=== PATIENT | female | born 1955 | race Caucasian/White ===

== ENCOUNTER 2016-11-27 08:35 | Emergency (ER) | payer MEDICAID ==
[~2016-11-27] VITALS: Ht 154.9 cm; Wt 63.5 kg
[2016-11-27 09:10] LABS: BASOPHILS % (AUTO) 0.4 % (0.0-2.0); EOSINOPHILS # (AUTO) 0.2 /CMM (0.0-0.7); EOSINOPHILS % (AUTO) 1.5 % (0.0-6.0); HEMATOCRIT 42 % (33-45); HEMOGLOBIN 13.9 g/dL (11.5-14.8); LYMPHOCYTES # (AUTO) 3.4 /CMM (0.8-4.8); LYMPHOCYTES % (AUTO) 33.3 % (20.0-44.0); MEAN CORPUSCULAR HEMOGLOBIN 29 PG (26.0-33.0); MEAN CORPUSCULAR HGB CONC 33 g/dl (31.0-36.0); MEAN CORPUSCULAR VOLUME 87 fL (82-100); MONOCYTES # (AUTO) 0.6 /CMM (0.1-1.30); MONOCYTES % (AUTO) 6.3 % (2.0-12.0); NEUTROPHILS # (AUTO) 5.9 /CMM (1.8-8.9); NEUTROPHILS % (AUTO) 58.5 % (43.0-81.0); PLATELET COUNT (AUTO) 309 /CMM (150-450); RDW COEFFICIENT OF VARIATION 13.6 (11.5-15.0); RED BLOOD CELL COUNT(AUTO) 4.79 MIL/uL (4.0-5.2); WHITE BLOOD COUNT (AUTO) 10.1 K/uL (4.3-11.0)
[2016-11-27 09:29] LABS: PROTHROMBIN TIME 10.7 SECS (9.5-12.7)
[2016-11-27 09:32] LABS: CALCIUM, SERUM 9.4 mg/dL (8.5-10.1); CARBON DIOXIDE 26 mmol/L (21-32); CHLORIDE 103 mmol/L (98-107); CREATININE 0.7 mg/dL (0.6-1.3); GFR 85 mL/min (>60); GLUCOSE 227 mg/dL (74-106); POTASSIUM 4.3 mmol/L (3.5-5.1); SODIUM SERUM 140 mmol/L (136-145); UREA NITROGEN, BLOOD 18 mg/dL (7-18)
[2016-11-27 09:37] LABS: ALANINE AMINOTRANSFERASE 37 U/L (12-78); ALKALINE PHOSPHATASE 37 U/L (46-116); ASPARTATE AMINOTRANSFERASE 17 U/L (15-37); BILIRUBIN,DIRECT 0.1 mg/dL (0.0-0.2); BILIRUBIN,TOTAL 0.6 mg/dL (0.2-1.0); TOTAL PROTEIN, SERUM 7.9 g/dL (6.4-8.2)
[2016-11-27 09:39] LABS: TROPONIN I < 0.017 ng/mL (0.00-0.056)
--- NOTE | 2016-11-27 10:29 | NUR ---
ACI WITH NO RX/ COPIES OF HEAD CT/ LABS PROVIDED TO BOTH PT/FAMILY MEMBERS. VERBALIZED UNDERSTANDING. REPORTS SHE IS FEELING BETTER. PT LEFT DEM IN STABLE CONDITION STRONG STEADY GAIT.
[2016-11-27 10:35] VITALS: BP 108/76
== END 2016-11-27 10:36 | disposition home or self-care (01) ==
LOC: ER 08:37
DX: R55 Syncope and collapse (principal); S00.03XA Contusion of scalp, initial encounter; I10 Essential (primary) hypertension; E11.9 Type 2 diabetes mellitus without complications; Z90.49 Acquired absence of other specified parts of digestive tract; Z90.89 Acquired absence of other organs; W18.30XA Fall on same level, unspecified, initial encounter; Y93.89 Activity, other specified; Y92.89 Other specified places as the place of occurrence of the external cause; Y99.8 Other external cause status
CPT/HCPCS: 36415; 70450; 80048; 80076; 84484; 85025; 85730; 93005; 99285; A4606; Z7610; A6402

== ENCOUNTER 2018-12-03 08:28 | Emergency (ER) | payer OTHER ==
[~2018-12-03] VITALS: Ht 154.9 cm; Wt 63.5 kg
--- NOTE | 2018-12-03 08:37 | NUR ---
PT BIB DAUGHTER C/O DIZZINESS, HIGH BLOOD PRESSURE X 1 HOUR, PT IS AAOX4, NOT IN RESPIRATORY DISTRESS, V/S STABLE, HOOKED TO MONITOR, KEPT RESTED AND COMFORTABLE.
--- NOTE | 2018-12-03 08:46 | NUR ---
DR. KOCH AT BEDSIDE FOR EVAL.
--- NOTE | 2018-12-03 09:07 | NUR ---
ER PHLEB AT BEDSIDE FOR BLOOD DRAW.
[2018-12-03 09:20] LABS: BASOPHILS % (AUTO) 0.4 % (0.0-2.0); EOSINOPHILS % (AUTO) 1.3 % (0.0-6.0); HEMATOCRIT 44 % (33-45); HEMOGLOBIN 14.4 g/dL (11.5-14.8); LYMPHOCYTES % (AUTO) 26.1 % (20.0-44.0); MEAN CORPUSCULAR HGB CONC 33 g/dl (31.0-36.0); MEAN CORPUSCULAR VOLUME 90 fL (82-100); MONOCYTES # (AUTO) 0.5 /CMM (0.1-1.30); MONOCYTES % (AUTO) 6.4 % (2.0-12.0); NEUTROPHILS # (AUTO) 5.2 /CMM (1.8-8.9); NEUTROPHILS % (AUTO) 65.8 % (43.0-81.0); PLATELET COUNT (AUTO) 247 /CMM (150-450); WHITE BLOOD COUNT (AUTO) 7.8 K/uL (4.3-11.0)
[2018-12-03 09:24] LABS: POTASSIUM 4.2 mmol/L (3.5-5.1)
[2018-12-03 09:26] LABS: CALCIUM, SERUM 9.5 mg/dL (8.5-10.1); CARBON DIOXIDE 28 mmol/L (21-32); CHLORIDE 102 mmol/L (98-107); CREATININE 0.5 mg/dL (0.6-1.3); GLUCOSE 273 mg/dL (74-106); SODIUM SERUM 139 mmol/L (136-145); UREA NITROGEN, BLOOD 14 mg/dL (7-18)
--- NOTE | 2018-12-03 10:03 | NUR ---
IV removed. Catheter intact and site benign. Pressure and 4x4 applied to site. No bleeding noted. Patient discharged to home in stable condition. Written and verbal after care instructions given. Patient verbalizes understanding of instruction.
[2018-12-03 10:04] VITALS: BP 141/79
== END 2018-12-03 10:08 | disposition home or self-care (01) ==
LOC: ER 08:28
DX: R00.2 Palpitations (principal); I10 Essential (primary) hypertension; E11.9 Type 2 diabetes mellitus without complications; Z90.49 Acquired absence of other specified parts of digestive tract; Z90.89 Acquired absence of other organs
CPT/HCPCS: 36415; 71045-TC; 80048-TC; 84484-TC; 85025-TC

== ENCOUNTER 2021-09-28 11:43 | Inpatient (IN) | payer MEDICARE, MEDICAID ==
[~2021-09-28] VITALS: Ht 157.5 cm; Wt 59.9 kg
--- NOTE | 2021-09-28 11:46 | NUR ---
[id number] HOME, BACK OF HEAD LACERATION S/P SYNCOPE WALKING TO KITCHEN AT HOME. PATIENT IS A&OX4. BREATHING IS REGULAR AND UNLABORED. WARM BLANKET PROVIDED. AWAITING MD FOLEY.
--- NOTE | 2021-09-28 11:52 | NUR ---
COVID TEST COLLECTED AND SENT
--- NOTE | 2021-09-28 11:52 | NUR ---
IV ESTABLIHSED L HAND 20G
--- NOTE | 2021-09-28 11:54 | NUR ---
LAB AT BEDSIDE
--- NOTE | 2021-09-28 12:36 | NUR ---
X RAY AT BEDSIDE
--- NOTE | 2021-09-28 12:36 | NUR ---
PT UNABLE TO PROVIDE URINE AT THIS TIME.
[2021-09-28 12:37] LABS: CALCIUM, SERUM 10.2 mg/dL (8.5-10.1); CARBON DIOXIDE 28 mmol/L (21-32); CHLORIDE 101 mmol/L (98-107); CREATININE 0.6 mg/dL (0.6-1.3); GLUCOSE 348 mg/dL (74-106); POTASSIUM 3.3 mmol/L (3.5-5.1); SODIUM SERUM 141 mmol/L (136-145); UREA NITROGEN, BLOOD 13 mg/dL (7-18)
[2021-09-28 12:45] LABS: ALANINE AMINOTRANSFERASE 34 U/L (12-78); ALBUMIN 4.3 g/dL (3.4-5.0); ALKALINE PHOSPHATASE 54 U/L (46-116); ASPARTATE AMINOTRANSFERASE 22 U/L (15-37); BILIRUBIN,DIRECT 0.2 mg/dL (0.0-0.2); BILIRUBIN,TOTAL 0.7 mg/dL (0.2-1.0); TOTAL PROTEIN, SERUM 8.5 g/dL (6.4-8.2)
[2021-09-28] MEDS ORDERED: BENA40TA8 PO (12:56)
[2021-09-28] MEDS ORDERED: CANA300T PO (12:56)
[2021-09-28] MEDS ORDERED: INSU100V SQ (12:56)
[2021-09-28] MEDS ORDERED: ICOS1CAP PO (12:56)
[2021-09-28] MEDS ORDERED: FURO40TA5 PO (12:56)
[2021-09-28] MEDS ORDERED: INSU100V7 SQ (12:56)
[2021-09-28] MEDS ORDERED: POTA8TAB3 PO (12:56)
[2021-09-28] MEDS ORDERED: OMEP1PAC7 PO (12:56)
[2021-09-28] MEDS ORDERED: LEVO25TA76 PO (12:56)
[2021-09-28] MEDS ORDERED: HYDR-4077 PO (12:56)
[2021-09-28] MEDS ORDERED: LIPA1CAP15 PO (12:56)
[2021-09-28] MEDS ORDERED: METO-358 PO (12:56)
[2021-09-28] MEDS ORDERED: GABA-532 PO (12:56)
[2021-09-28] MEDS ORDERED: HYDR12.55 PO (12:56)
[2021-09-28] MEDS ORDERED: DOXA4TAB19 PO (12:56)
[2021-09-28] MEDS ORDERED: ROSU20TA32 PO (12:56)
[2021-09-28] MEDS ORDERED: METF-867 PO (12:56)
[2021-09-28] MEDS ORDERED: POTASSIUM CHLORIDE 20 MEQ TAB.PRT.SR PO ONE ×2 (13:00→13:26)
[2021-09-28] MEDS ORDERED: IV NS 0.9% 500 ML BAG IV ONE (13:30)
[2021-09-28 13:38] LABS: BASOPHILS % (AUTO) 0.3 % (0.0-2.0); EOSINOPHILS % (AUTO) 1.2 % (0.0-6.0); HEMATOCRIT 41 % (33-45); HEMOGLOBIN 13.7 g/dL (11.5-14.8); LYMPHOCYTES # (AUTO) 1.1 K/uL (0.8-4.8); LYMPHOCYTES % (AUTO) 7.2 % (20.0-44.0); MEAN CORPUSCULAR HGB CONC 33 g/dl (31.0-36.0); MEAN CORPUSCULAR VOLUME 86 fL (82-100); MONOCYTES % (AUTO) 6.8 % (2.0-12.0); NEUTROPHILS # (AUTO) 12.6 K/uL (1.8-8.9); NEUTROPHILS % (AUTO) 84.5 % (43.0-81.0); PLATELET COUNT (AUTO) 252 K/uL (150-450); RED BLOOD CELL COUNT(AUTO) 4.75 MIL/uL (4.0-5.2); WHITE BLOOD COUNT (AUTO) 14.9 K/uL (4.3-11.0)
--- NOTE | 2021-09-28 15:27 | NUR ---
ROSMERY .. SISTER OF PATIENT
--- NOTE | 2021-09-28 15:33 | NUR ---
MOVE SHEET SUBMITTED AND CALLED FOR TELE BED.
--- NOTE | 2021-09-28 15:54 | NUR ---
[facility] CALLED SOFTWARE SECURITY CONSULTANT PAGED.
--- NOTE | 2021-09-28 16:00 | NUR ---
URINE SPECIMEN SENT TO LAB
--- NOTE | 2021-09-28 16:10 | NUR ---
HULLER OPERATOR CAME TO DRAW BLOODS FOR TROPONIN
[2021-09-28] MEDS ORDERED: ONDANSETRON HCL/PF 4 MG/2 ML VIAL ONE (16:20)
--- NOTE | 2021-09-28 16:20 | NUR ---
Sandra gordilloelen in [facility] - 09/28/21 at 1754 by CORDELIA PATIENT WAS WHEELED TO CT SCAN DEPARTMENT VIA STRETCHER FOR REPEAT CT SCAN OF THE HEAD
--- NOTE | 2021-09-28 16:28 | NUR ---
1615- IVF 1L BOLUS STARTED. PATIENT HAS EPISODE OF VOMITING. Sammy ALANIS MADE AWARE
--- NOTE | 2021-09-28 16:35 | NUR ---
PATIENT WAS WHEELED TO CT SCAN DEPT VIA STRETCHER FOR REPEAT CT OF BRAIN
[2021-09-28 16:42] LABS: BILIRUBIN,URINE NEGATIVE (NEGATIVE); COLOR,URINE YELLOW (YELLOW); LEUKOCYTE ESTERASE ,URINE NEGATIVE (NEGATIVE); NITRITE, URINE NEGATIVE (NEGATIVE); PH,URINE 5.5 (5.0-8.0); PROTEIN,URINE 100 mg/dl (NEGATIVE); UGLUCOSE >=1000 mg/dL (NEGATIVE); UROBILINOGEN,URINE 0.2 EU/dL (0.2)
[2021-09-28 16:55] LABS: BACTERIA,URINE 1+ /HPF (None Seen); RBC,URINE 0-2 /HPF (0-2); SQUAMOUS EPITHELIAL CELL,UR 0-2 /HPF (None Seen); URINE AMORPHOUS URATE Few /HPF (None Seen); WBC,URINE 0-2 /HPF (0-3)
[2021-09-28] MEDS ORDERED: MAG HYDROX/AL HYDROX/SIMETH 30 ML UDC PO PRN (17:00)
[2021-09-28] MEDS ORDERED: ONDANSETRON HCL/PF 4 MG/2 ML VIAL IVP PRN (17:00)
[2021-09-28] MEDS ORDERED: DEXTROSE 50%-WATER 50 ML DISP.SYRIN IV PRN (17:00)
[2021-09-28] MEDS ORDERED: Z GUARD REMEDY 4 OZ OINT TP PRN (17:00)
[2021-09-28] MEDS ORDERED: ACETAMINOPHEN 325 MG TABLET PO PRN (17:00)
[2021-09-28] MEDS ORDERED: MORPHINE SULFATE INJ 2 MG/ML DISP.SYRIN IV PRN (17:00)
[2021-09-28] MEDS ORDERED: MAGNESIUM HYDROXIDE 30 ML UDC PO PRN (17:00)
--- NOTE | 2021-09-28 17:17 | NUR ---
GOING TO 327.2
--- NOTE | 2021-09-28 17:20 | NUR ---
SUDEEP APPLIED TO LACERATED WOUND AT RIGHT OCCIPITAL AREA. PATIENT TOLERATING THE PROCEDURE
[2021-09-28] MEDS: BLOOD SUGAR DIAGNOSTIC 1 EACH STRIP IN SCH ×2 (17:30→21:55)
--- NOTE | 2021-09-28 17:45 | NUR ---
PATIENT IS ADMITTED TO ROOM 326 2, REPORT GIVEN TO NURSE GORAN
--- NOTE | 2021-09-28 17:58 | NUR ---
DAUGHTER AT BEDSIDE
[2021-09-28] MEDS: GABAPENTIN 100 MG CAPSULE PO SCH (18:00)
[2021-09-28] MEDS ORDERED: GABAPENTIN 100 MG CAPSULE ONE (18:18)
--- NOTE | 2021-09-28 18:23 | NUR ---
BEDSIDE 2DECHO DONE.
[2021-09-28] MEDS ORDERED: INSULIN REGULAR, HUMAN 100 UNIT/ML 10 ML VIAL ONE (18:46)
[2021-09-28] MEDS: INSULIN REGULAR, HUMAN 100 UNIT/ML 3 ML VIAL SQ PRN ×2 (18:47→22:10)
--- NOTE | 2021-09-28 19:58 | NUR ---
icu 259
--- NOTE | 2021-09-28 20:18 | NUR ---
PT CAN BE ADMITTED TO ICU RM 259. REPORTS GIVEN TO LOULOU.
--- NOTE | 2021-09-28 20:30 | NUR ---
TRANSFER PATIENT TO ICU VIA STRETCHER WITH GREENHOUSE WORKER ATTACHED. 2ND IV LINE INSERTED ON LFA USING G20 NEEDLE.
--- NOTE | 2021-09-28 20:41 | NUR ---
PATIENT TRANSFERRED UNDER ACLS.
[2021-09-28 21:00] VITALS: BP 114/83
[2021-09-28] MEDS: ATORVASTATIN 40 MG TABLET PO SCH (21:55)
[2021-09-28] MEDS: INSULIN GLARGINE, 100 UNIT/ML CARTRIDGE SQ SCH (21:59)
[2021-09-28 22:00] VITALS: BP 128/58
--- NOTE | 2021-09-28 22:00 | NUR ---
RN NOTE RECEIVED PATIENT FROM ER VIA [employer]v. PATIENT IS ALERT AND ORIENTED X4. ABLE TO MAKE NEEDS KNOWN. NO SLURRED SPEECH. BREATHING EVEN AND UNLABORED. DENIES FEELING SHORTNESS OF BREATH. TOLERATING ROOM AIR AT 94 PERCENT. HOB ELEVATED 35 DEGREES. ON TELE MONITORING, SINUS TACHYCARDIA AT 112 BPM. DENIES CHEST PAIN. STATES SHE FEELS DIZZY WHEN TURNING AND REPOSITIONING. SKIN WARM AND DRY. NOTED WITH LEFT AC 20G, AND LEFT FOREARM 20G, NO INFILTRATION. NIHSS SCALE PERFORMED. NO ABNORMALITIES AT THIS TIME. SWALLOW EVAL PERFORMED AT BEDSIDE. TOLERATED 60 CC FLUIDS. NO SYMPTOMS OF HYPO/HYPERGLYCEMIA. OFFERED SNACKS. FLOOR ORDERS NOTED AND CARRIED OUT. DENIES CONSTIPATION/BLADDER PAIN. WILL CONTINUE TO MONITOR FOR NEUROLOGICAL CHANGES. BED LOW, IN LOCKED POSITION, CALL LIGHT WITHIN REACH.
[2021-09-28 23:00] VITALS: BP 121/70
[2021-09-29] VITALS (24 sets, daily range): BP systolic 105–135; BP diastolic 52–83
[2021-09-29 04:26] LABS: BASOPHILS % (AUTO) 0.1 % (0.0-2.0); HEMATOCRIT 38 % (33-45); HEMOGLOBIN 12.9 g/dL (11.5-14.8); LYMPHOCYTES # (AUTO) 1.5 K/uL (0.8-4.8); LYMPHOCYTES % (AUTO) 14.3 % (20.0-44.0); MEAN CORPUSCULAR HGB CONC 34 g/dl (31.0-36.0); MEAN CORPUSCULAR VOLUME 86 fL (82-100); MONOCYTES # (AUTO) 1.1 K/uL (0.1-1.30); MONOCYTES % (AUTO) 10.6 % (2.0-12.0); PLATELET COUNT (AUTO) 285 K/uL (150-450); RED BLOOD CELL COUNT(AUTO) 4.45 MIL/uL (4.0-5.2); WHITE BLOOD COUNT (AUTO) 10.7 K/uL (4.3-11.0)
[2021-09-29 04:49] LABS: CALCIUM, SERUM 9.1 mg/dL (8.5-10.1); CREATININE 0.5 mg/dL (0.6-1.3); MAGNESIUM 1.8 mg/dL (1.8-2.4); PHOSPHORUS 3.2 mg/dL (2.5-4.9); POTASSIUM 3.9 mmol/L (3.5-5.1)
--- NOTE | 2021-09-29 07:30 | NUR ---
CIRCULATING PROCESS INSPECTOR OPENING NOTES Patient is alert and oriented x 4. Breathing even and unlabored. On room air with 02 sat of 96%. No c/o pain or discomfort. Patient teaching done regarding use of call light and safety precautions. Neuro checks done and WNL. Will continue to monitor. Call light with in reach.
[2021-09-29] MEDS: LEVOTHYROXINE SODIUM 25 MCG TABLET PO SCH (08:15)
[2021-09-29] MEDS: GABAPENTIN 100 MG CAPSULE PO SCH ×3 (08:15→16:35)
[2021-09-29] MEDS: BLOOD SUGAR DIAGNOSTIC 1 EACH STRIP IN SCH ×4 (08:15→21:00)
[2021-09-29] MEDS: INSULIN REGULAR, HUMAN 100 UNIT/ML 3 ML VIAL SQ PRN ×4 (08:16→21:06)
[2021-09-29] MEDS ORDERED: PANTOPRAZOLE 40 MG VIAL IV SCH (09:00)
--- NOTE | 2021-09-29 09:00 | NUR ---
Patient noted with dislodged iv site both and new iv line started to right hand 22 GAUGE.
[2021-09-29] MEDS: METOPROLOL TARTRATE 50 MG TABLET PO SCH ×3 (11:56→23:26)
[2021-09-29 12:39] LABS: THYROID STIMULATING HORMONE 0.888 uIU/mL (0.358-3.74)
--- NOTE | 2021-09-29 14:00 | NUR ---
Patient neuro vitals WNL. C/O headache. Dr Santiago aware in assessed in person with no new orders.
--- NOTE | 2021-09-29 17:39 | NUR ---
Patient seen by Dr Wolf and per to continue monitoring the patient in ICU and recheck CT of the brain in am. Orders noted. Patient aware. Addendum: 09/29/21 at 1743 by MARÍA PATEL RN MD Wolf made aware that patient c.o dizziness during the shift no c/o headache or blurred visioN.
--- NOTE | 2021-09-29 18:55 | NUR ---
SNACK FOODS MIXER OPERATOR CLOSING NOTES Patient is alert and oriented x 4. Breathing even and unlabored. On room air with 02 sat of 99%. No c/o pain or discomfort. Patient teaching done regarding use of call light and safety precautions. Patient monitored during shift for neuro checks and noted with WNL. Patient used bedpan x2, HOB kept elevated. Patient resting comfortably in bed. Will endorse to nextg shift. Call light with in reach.
--- NOTE | 2021-09-29 19:38 | NUR ---
RN NOTE RECEIVED PATIENT IN BED, SLEEPING, AROUSABLE TO NAME AND TOUCH. AOX4. BREATHING EVEN AND UNLABORED. TOLERATING ROOM AIR, LAYING SUPINE. OXYGEN SATURATION OF 92 PERCENT. DENIES FEELING SOB. ON TELE MONITORING, SINUS RHYTHM AT 90 BPM. DENIES CHEST PAIN. SKIN WARM AND DRY. NOTED WITH RIGHT HAND 22G, PATENT, NO INFILTRATION. NO IVF. NOTED WITH OCCIPITAL LACERATION WITH SUDEEP. NO BLEEDING/DRAINAGE. NO S/S OF HYPO/HYPERGLYCEMIA AT THIS TIME. OFFERED FLUIDS FOR ADEQUATE HYDRATION. WHEN ASKED FOR PAIN, PATIENT STATES OF PAIN IN BACK OF HER HEAD WHERE SUDEEP ARE LOCATED. RATES PAIN 7/10. DENIES NAUSEA/VOMITING, AND DIZZINESS. BED LOW, IN LOCKED POSITION. CALL LIGHT WITHIN REACH.
[2021-09-29] MEDS: HYDROCODONE/APAP 5/325MG TABLET PO PRN (19:47)
--- NOTE | 2021-09-29 19:47 | NUR ---
RN NOTE PATIENT STATES OF PAIN IN BACK OF HER HEAD WHERE SUDEEP ARE LOCATED. RATES PAIN 7/10. DENIES NAUSEA/VOMITING, AND DIZZINESS. ADMINISTERED NORCO 5MG/325MG PER MD ORDER. VITAL SIGNS WITHIN NORMAL LIMIT. WILL CONTINUE TO MONITOR CALL LIGHT WITHIN REACH.
[2021-09-29] MEDS: INSULIN GLARGINE, 100 UNIT/ML CARTRIDGE SQ SCH (21:07)
[2021-09-29] MEDS: ATORVASTATIN 40 MG TABLET PO SCH (21:07)
[2021-09-29] MEDS ORDERED: MECLIZINE HCL 12.5 MG TABLET PO ONE (22:30)
--- NOTE | 2021-09-29 22:37 | NUR ---
RN NOTE PATIENT COMPLAINING OF MILD DIZZINESS WHEN TURNING AND REPOSITIONING AND REQUESTED FOR MEDICATION FOR DIZZINESS. DENIES FEELING NAUSEA/VOMITING. HEADACHE RESOLVED AT THIS TIME. NO CHANGES IN LEVEL OF CONSCIOUSNESS. VITAL SIGNS WNL. PAGED ERUM MCKEON. PER ALIYA MCKEON FOR MECLIZINE 25 MG PO ONE TIME. NEW ORDER NOTED AND CARRIED OUT. MEDICATION NOT AVAILABLE IN [facility]. FAXED ORDER TO NURSING LABOR LAW PROFESSOR.
[2021-09-29] MEDS ORDERED: MECLIZINE HCL 25 MG TABLET ONE (23:55)
[2021-09-30] VITALS (17 sets, daily range): BP systolic 114–149; BP diastolic 48–86
[2021-09-30 04:23] LABS: BASOPHILS % (AUTO) 0.4 % (0.0-2.0); EOSINOPHILS % (AUTO) 0.4 % (0.0-6.0); HEMATOCRIT 38 % (33-45); HEMOGLOBIN 12.8 g/dL (11.5-14.8); LYMPHOCYTES # (AUTO) 3.4 K/uL (0.8-4.8); LYMPHOCYTES % (AUTO) 33.7 % (20.0-44.0); MEAN CORPUSCULAR HGB CONC 34 g/dl (31.0-36.0); MEAN CORPUSCULAR VOLUME 86 fL (82-100); MONOCYTES # (AUTO) 0.9 K/uL (0.1-1.30); MONOCYTES % (AUTO) 9.2 % (2.0-12.0); NEUTROPHILS # (AUTO) 5.7 K/uL (1.8-8.9); NEUTROPHILS % (AUTO) 56.3 % (43.0-81.0); PLATELET COUNT (AUTO) 238 K/uL (150-450); WHITE BLOOD COUNT (AUTO) 10.1 K/uL (4.3-11.0)
[2021-09-30 04:51] LABS: ALBUMIN 3.2 g/dL (3.4-5.0); BILIRUBIN,TOTAL 0.7 mg/dL (0.2-1.0); CREATININE 0.5 mg/dL (0.6-1.3); MAGNESIUM 1.9 mg/dL (1.8-2.4); PHOSPHORUS 2.6 mg/dL (2.5-4.9); POTASSIUM 3.8 mmol/L (3.5-5.1); TOTAL PROTEIN, SERUM 7.1 g/dL (6.4-8.2)
[2021-09-30] MEDS: METOPROLOL TARTRATE 50 MG TABLET PO SCH ×4 (05:32→23:24)
--- NOTE | 2021-09-30 07:30 | NUR ---
RN MORNING NOTE PT OBSERVED SLEEPING IN BED WITH HOB AT 30 DEGREES. PT IS ON RA SAT 95% TOLERATING WELL AT THIS TIME WITH NO SIGNS OF LABORED BREATHING OR DISTRESS. PT IS A/OX4. PT IS TELE MONITOR SR @90BPM. IV ACCESS R QUEZ[place] 22G. BED IS LOCKED IN LOWEST POSITION X2 GUARD RAILS UP, CALL BONE IS WITHIN REACH AND ALL HOSPITAL SAFETY PRECAUTIONS ARE IN PLACE. WILL CONTINUE TO MONITOR THIS SHIFT.
[2021-09-30] MEDS: LEVOTHYROXINE SODIUM 25 MCG TABLET PO SCH (07:46)
[2021-09-30] MEDS: BLOOD SUGAR DIAGNOSTIC 1 EACH STRIP IN SCH ×4 (07:51→21:45)
[2021-09-30] MEDS: GABAPENTIN 100 MG CAPSULE PO SCH ×3 (08:05→17:04)
[2021-09-30] MEDS: PANTOPRAZOLE 40 MG TABLET.DR PO SCH (08:05)
[2021-09-30] MEDS: INSULIN REGULAR, HUMAN 100 UNIT/ML 3 ML VIAL SQ PRN ×4 (09:22→21:51)
--- NOTE | 2021-09-30 14:00 | NUR ---
RN NOTES RECEIVED PATIENT FROM ICU, TRANSPORTED VIA BED, ACCOMPANIED BY EMPERATRIZ LEACH. PATIENT ALERT , A/O X4, VERBALLY RESPONSIVE, NO SIGNS OF ACUTE DISTRESS NOTED. ON ROOM AIR TOLERATING WELL, SATURATION @97 %. NO SOB NOTED, BREATHING EVEN AND UNLABORED. ACCOUNTING DIRECTOR APPLIED, WITH READING SHOWING SR @82. NOT IN CARDIAC DISTRESS. SKIN GENERALLY INTACT. WITH IV ACCESS ON RIGHT HAND #22G, INTACT AND PATENT, SALINE LOCKED. PATIENT ORIENTED TO ROOM AND ROOM MATE. SAFETY MEASURES IN PLACE. BED IN LOWEST LOCKED POSITION, SR UP X 2, CALL LIGHT PLACED WITHIN EASY REACH. WILL CONTINUE TO MONITOR. VITAL SIGNS FOLLOWS: 133/73, 82, 98.2, 19, SPO2 97%, PS 0/10.
--- NOTE | 2021-09-30 15:40 | NUR ---
RN NOTE PT COMPLETED CT OF HEAD WO CONTRAST. PT ALSO TRANSFERRED TO ROOM 327/1. REPORT GIVEN TO EMPERATRIZ VELÁZQUEZ. PT STABLE AT THIS TIME AND PT TRANSFERRED WITH ALL MEDICATIONS AND ALL BELONGINGS: CELL PHONE AND WALL BEARING RING ASSEMBLER.
--- NOTE | 2021-09-30 16:05 | NUR ---
RN NOTES RECEIVED PATIENT FROM ICU, TRANSPORTED VIA BED, ACCOMPANIED BY EMPERATRIZ LEACH. PATIENT IS A/O X4, NO SIGNS OF ACUTE DISTRESS NOTED. ON ROOM AIR TOLERATING WELL, NO SOB NOTED, BREATHING EVEN AND UNLABORED, SPO2 @ 97%. TOOL GRINDER OPERATOR SURFACE PLACED, SHOWING SR @ 82. ORIENTED PATIENT TO ROOM. SAFETY MEASURES PROVIDED. BED LOCKED AND IN LOWEST POSITION, SR UP X2, CALL LIGHT PLACED WITHIN EASY REACH. KEPT COMFORTABLE. WILL CONTINUE TO MONITOR. VITAL SIGNS FOLLOWS: 133/73, 82, 98.2, 19. WILL CONTINUE TO MONITOR.
--- NOTE | 2021-09-30 19:00 | NUR ---
DIETARY SERVICES MANAGER NOTES PATIENT IN BED AWAKE, A/O X4. REMAINS ON ROOM AIR, TOLERATED WELL. NO SOB NOTED, BREATHING EVEN AND UNLABORED. ON TELE MONITOR SHOWING SR @ 90. IV ACCESS ON RIGHT HAND INTACT AND PATENT SALINE LOCKED. NO C/O PAIN AT THIS TIME. SAFETY MEASURE IN PLACE. BED IN LOWEST LOCKED POSITION, SR UP X2, CALL LIGHT PLACED WITHIN EASY REACH. WILL ENDORSE TO NEXT SHIFT.
--- NOTE | 2021-09-30 19:30 | NUR ---
VOICE SYSTEMS ENGINEER OPENING NOTE RECEIVED PATIENT IN BED. 2 FAMILY MEMBERS ON BEDSIDE WITH PATIENT. A/OX4. NO S/S OF APPARENT DISTRESS ON RROM AIR. SENIES ANY PAIN. TELE MONITOR READING SR 83. PATIENT NOTED TO HAVE SUDEEP ON BACK OF THE HEAD-- INTACT AND PATENT. NO DRY BLOOD OR ANY ACTIVE BLEEDING NOTED. SAFETY IN PLACE. NO FLUIDS RUNNING AT THIS TIME. WILL CONTINUE WITH PATIENT PLAN OF CARE.
[2021-09-30] MEDS: ATORVASTATIN 40 MG TABLET PO SCH (21:16)
[2021-09-30] MEDS: INSULIN GLARGINE, 100 UNIT/ML CARTRIDGE SQ SCH (21:47)
[2021-10-01] VITALS: BP 132/63
[2021-10-01 04:00] VITALS: BP 142/67
[2021-10-01] MEDS: METOPROLOL TARTRATE 50 MG TABLET PO SCH ×3 (06:27→17:17)
[2021-10-01] MEDS: BLOOD SUGAR DIAGNOSTIC 1 EACH STRIP IN SCH ×4 (06:31→21:56)
[2021-10-01] MEDS: INSULIN REGULAR, HUMAN 100 UNIT/ML 3 ML VIAL SQ PRN ×4 (06:33→22:02)
[2021-10-01] MEDS: HYDROCODONE/APAP 5/325MG TABLET PO PRN (06:39)
--- NOTE | 2021-10-01 07:04 | NUR ---
STITCH BURNISHER CLOSING NOTE PATIENT IN BED, A/OX4. NO S/S OF APPARENT DISTRESS. PAIN MANAGED WITH MEDICATION. TELE MONITOR READING SR 80 THIS AM. NO FLUIDS RUNNING AT THIS TIME. SEIZURE PRECAUTION IN PLACE-- PADDED RAILINGS. NEURO CHECKS HAS BEEN NORMAL. NIHSS = 0. ALL NEEDS ATTENDED. ALL SCHEDULED MEDICATIONS ADMINISTERED. SAFETY IN PLACE. WILL ENDORSE TO MORNING SHIFT RN FOR CONTINUITY OF CARE.
[2021-10-01] MEDS: LEVOTHYROXINE SODIUM 25 MCG TABLET PO SCH (07:30)
[2021-10-01 07:32] LABS: BASOPHILS % (AUTO) 0.4 % (0.0-2.0); EOSINOPHILS % (AUTO) 1.3 % (0.0-6.0); HEMATOCRIT 40 % (33-45); HEMOGLOBIN 13.3 g/dL (11.5-14.8); LYMPHOCYTES # (AUTO) 2.9 K/uL (0.8-4.8); LYMPHOCYTES % (AUTO) 34.1 % (20.0-44.0); MEAN CORPUSCULAR HGB CONC 33 g/dl (31.0-36.0); MEAN CORPUSCULAR VOLUME 86 fL (82-100); MONOCYTES # (AUTO) 0.8 K/uL (0.1-1.30); MONOCYTES % (AUTO) 9.3 % (2.0-12.0); NEUTROPHILS # (AUTO) 4.7 K/uL (1.8-8.9); NEUTROPHILS % (AUTO) 54.9 % (43.0-81.0); PLATELET COUNT (AUTO) 238 K/uL (150-450); RED BLOOD CELL COUNT(AUTO) 4.63 MIL/uL (4.0-5.2); WHITE BLOOD COUNT (AUTO) 8.6 K/uL (4.3-11.0)
--- NOTE | 2021-10-01 07:44 | NUR ---
CARDIOLOGY CLINICAL CONSULTANT OPENING NOTES RECEIVED PATIENT IN BED, AWAKE, A/O X4. PATIENT ON ROOM AIR; BREATHING EVEN AND UNLABORED; NO SOB NOTED. NO COMPLAINS OF PAIN BUT COMPLAINING OF DIZZINESS. TELE MONITOR WITH A CURRENT READING OF SR 76 BPM. R HAND IV ACCESS G #22 PRESENT AND INTACT. SAFETY PRECAUTIONS IN PLACE; BED IN LOW POSITION AND LOCKED, RAILS UP X2, CALL LIGHT WITHIN REACH, SEIZURE PRECAUTIONS IN PLACE. WILL CONTINUE TO MONITOR PATIENT.
[2021-10-01 08:00] VITALS: BP 128/64
[2021-10-01] MEDS ORDERED: PANTOPRAZOLE 40 MG TABLET.DR PO SCH (08:00)
[2021-10-01] MEDS: GABAPENTIN 100 MG CAPSULE PO SCH ×3 (08:07→17:17)
[2021-10-01] MEDS: PANTOPRAZOLE 40 MG TABLET.DR PO SCH (08:07)
[2021-10-01 12:00] VITALS: BP 127/61
[2021-10-01 12:34] LABS: ALBUMIN 3.4 g/dL (3.4-5.0); BILIRUBIN,TOTAL 0.8 mg/dL (0.2-1.0); CALCIUM, SERUM 9.3 mg/dL (8.5-10.1); CREATININE 0.5 mg/dL (0.6-1.3); PHOSPHORUS 3.4 mg/dL (2.5-4.9); POTASSIUM 3.6 mmol/L (3.5-5.1); TOTAL PROTEIN, SERUM 7.5 g/dL (6.4-8.2)
[2021-10-01 16:00] VITALS: BP 123/70
--- NOTE | 2021-10-01 18:42 | NUR ---
SILVERLIGHT DEVELOPER CLOSING NOTES PATIENT REMAINS IN BED, AWAKE, A/O X4. PATIENT ON ROOM AIR; BREATHING EVEN AND UNLABORED; NO SOB NOTED DURING SHIFT. COMPLAINS OF MILD HEADACHE AND DIZZINESS. TELE MONITOR WITH A CURRENT READING OF SR. R HAND IV ACCESS G #22 PRESENT AND INTACT. ALL NEEDS ATTENDED DURING THE DAY. SAFETY PRECAUTIONS IN PLACE; BED IN LOW POSITION AND LOCKED, RAILS UP X2, CALL LIGHT WITHIN REACH, SEIZURE PRECAUTIONS IN PLACE. WILL ENDORSE TO SENIOR PROJECT ACCOUNTANT NURSE FOR FAITH.
--- NOTE | 2021-10-01 19:15 | NUR ---
CELL MANAGER OPENING NOTES RECEIVED PATIENT LAYING AWAKE IN BED. A/O X4. PATIENT ON REGULAR AND UNLABORED BREATHING ON ROOM AIR, TOLERATED WELL. NO SIGNS OR SYMPTOMS OF DISTRESS NOTED AT THIS TIME. NO COMPLAINS OF PAIN OR DISCOMFORT AT THIS TIME. PATIENT ON TELE MONITOR READING SR @ 82 BPM. IV ACCESS R HAND G #22 SL. IV ACCESS PATENT AND INTACT. SAFETY PRECAUTIONS ENFORCED WITH BED LOCKED AND AT LOWEST POSITION. SIDERAILS UP X2. CALL LIGHT WITHIN REACH AT ALL TIMES. WILL CONTINUE TO MONITOR PATIENT.
[2021-10-01 20:00] VITALS: BP 134/72
[2021-10-01] MEDS: ATORVASTATIN 40 MG TABLET PO SCH (21:46)
[2021-10-01] MEDS: INSULIN GLARGINE, 100 UNIT/ML CARTRIDGE SQ SCH (22:01)
[2021-10-02] VITALS: BP 119/62
[2021-10-02] MEDS: METOPROLOL TARTRATE 50 MG TABLET PO SCH ×4 (00:17→17:37)
[2021-10-02 04:00] VITALS: BP 126/60
[2021-10-02 06:10] LABS: BASOPHILS % (AUTO) 0.3 % (0.0-2.0); EOSINOPHILS % (AUTO) 1.2 % (0.0-6.0); HEMATOCRIT 40 % (33-45); HEMOGLOBIN 13.3 g/dL (11.5-14.8); LYMPHOCYTES # (AUTO) 2.7 K/uL (0.8-4.8); LYMPHOCYTES % (AUTO) 31.9 % (20.0-44.0); MEAN CORPUSCULAR HGB CONC 34 g/dl (31.0-36.0); MEAN CORPUSCULAR VOLUME 86 fL (82-100); MONOCYTES # (AUTO) 0.8 K/uL (0.1-1.30); MONOCYTES % (AUTO) 9.3 % (2.0-12.0); NEUTROPHILS # (AUTO) 4.8 K/uL (1.8-8.9); NEUTROPHILS % (AUTO) 57.3 % (43.0-81.0); PLATELET COUNT (AUTO) 245 K/uL (150-450); RED BLOOD CELL COUNT(AUTO) 4.58 MIL/uL (4.0-5.2); WHITE BLOOD COUNT (AUTO) 8.3 K/uL (4.3-11.0)
[2021-10-02] MEDS: BLOOD SUGAR DIAGNOSTIC 1 EACH STRIP IN SCH ×4 (06:31→22:01)
[2021-10-02] MEDS: INSULIN REGULAR, HUMAN 100 UNIT/ML 3 ML VIAL SQ PRN ×4 (06:41→22:05)
[2021-10-02 07:19] LABS: ALBUMIN 3.3 g/dL (3.4-5.0); BILIRUBIN,TOTAL 0.9 mg/dL (0.2-1.0); CALCIUM, SERUM 9.3 mg/dL (8.5-10.1); CREATININE 0.6 mg/dL (0.6-1.3); MAGNESIUM 1.8 mg/dL (1.8-2.4); PHOSPHORUS 3.3 mg/dL (2.5-4.9); POTASSIUM 3.9 mmol/L (3.5-5.1); TOTAL PROTEIN, SERUM 7.5 g/dL (6.4-8.2)
[2021-10-02] MEDS: LEVOTHYROXINE SODIUM 25 MCG TABLET PO SCH ×2 (07:30→08:32)
--- NOTE | 2021-10-02 07:31 | NUR ---
PRESS SET UP CLOSING NOTES PATIENT STILL LAYING AWAKE IN BED. A/O X4. PATIENT ON REGULAR AND UNLABORED BREATHING ON ROOM AIR, TOLERATED WELL. NO SIGNS OR SYMPTOMS OF DISTRESS NOTED AT THIS TIME. NO COMPLAINS OF PAIN OR DISCOMFORT AT THIS TIME. PATIENT ON TELE MONITOR READING SR @ 85 BPM. IV ACCESS R HAND G #22 SL. IV ACCESS PATENT AND INTACT. SAFETY PRECAUTIONS ENFORCED WITH BED LOCKED AND AT LOWEST POSITION. SIDERAILS UP X2. CALL LIGHT WITHIN REACH AT ALL TIMES. WILL ENDORSE CONTINUITY OF CARE TO DAY SHIFT NURSE.
--- NOTE | 2021-10-02 07:37 | NUR ---
TREE PRUNER OPENING NOTE Patient in bed, asleep. A/O x 4. On room air, breathing evenly and unlabored. No SOB or s/s of distress noted. IV access on Right hand #22 SL, intact and patent. Safety measures in place: bed in low, locked position; siderails up x 2; brian light within reach. Will continue to monitor.
[2021-10-02 08:00] VITALS: BP 135/94
[2021-10-02] MEDS: PANTOPRAZOLE 40 MG TABLET.DR PO SCH (08:32)
[2021-10-02] MEDS: GABAPENTIN 100 MG CAPSULE PO SCH ×3 (08:32→17:36)
[2021-10-02 16:00] VITALS: BP 123/70
--- NOTE | 2021-10-02 19:15 | NUR ---
MS RN OPENING NOTES RECEIVED PATIENT LAYING AWAKE IN BED. A/O X4. PATIENT ON REGULAR AND UNLABORED BREATHING ON ROOM AIR, TOLERATED WELL. NO SIGNS OR SYMPTOMS OF DISTRESS NOTED AT THIS TIME. NO COMPLAINS OF PAIN OR DISCOMFORT AT THIS TIME. IV ACCESS R HAND G #22 SL. IV ACCESS PATENT AND INTACT. SAFETY PRECAUTIONS ENFORCED WITH BED LOCKED AND AT LOWEST POSITION. SIDERAILS UP X2. CALL LIGHT WITHIN REACH AT ALL TIMES. WILL CONTINUE TO MONITOR PATIENT.
--- NOTE | 2021-10-02 19:27 | NUR ---
MEDICAL DOSIMETRIST CLOSING NOTE Patient in bed, resting comfortably. A/O x 4, able to make needs known. Stable on room air, breathing evenly and unlabored. No SOB or s/s of distress noted. IV access on Right hand #22 SL, intact and patent. No bleeding noted on derrell on the head. All needs attended to. Due meds given. Safety measures maintained: bed in low, locked position; siderails up x 2; brian light within reach. Will endorse to plate filler nurse for FAITH.
[2021-10-02 20:00] VITALS: BP 126/76
[2021-10-02] MEDS: ATORVASTATIN 40 MG TABLET PO SCH (21:54)
[2021-10-02] MEDS: INSULIN GLARGINE, 100 UNIT/ML CARTRIDGE SQ SCH (22:04)
[2021-10-03] MEDS: METOPROLOL TARTRATE 50 MG TABLET PO SCH ×4 (01:30→17:21)
[2021-10-03] MEDS: HYDROCODONE/APAP 5/325MG TABLET PO PRN ×2 (05:41→18:47)
[2021-10-03] MEDS: BLOOD SUGAR DIAGNOSTIC 1 EACH STRIP IN SCH ×3 (06:31→16:46)
[2021-10-03] MEDS: INSULIN REGULAR, HUMAN 100 UNIT/ML 3 ML VIAL SQ PRN ×2 (06:35→17:24)
--- NOTE | 2021-10-03 06:45 | NUR ---
MS RN CLOSING NOTES PATIENT STILL LAYING AWAKE IN BED. A/O X4. PATIENT ON REGULAR AND UNLABORED BREATHING ON ROOM AIR, TOLERATED WELL. NO SIGNS OR SYMPTOMS OF DISTRESS NOTED AT THIS TIME. NO COMPLAINS OF PAIN OR DISCOMFORT AT THIS TIME. IV ACCESS R HAND G #22 SL. IV ACCESS PATENT AND INTACT. SAFETY PRECAUTIONS ENFORCED WITH BED LOCKED AND AT LOWEST POSITION. SIDERAILS UP X2. CALL LIGHT WITHIN REACH AT ALL TIMES. WILL ENDORSE CONTINUITY OF CARE TO DAY SHIFT NURSE.
[2021-10-03] MEDS: LEVOTHYROXINE SODIUM 25 MCG TABLET PO SCH (07:30)
[2021-10-03] MEDS: PANTOPRAZOLE 40 MG TABLET.DR PO SCH (07:42)
--- NOTE | 2021-10-03 07:54 | NUR ---
EDITOR MANAGING NEWSPAPER OPENING NOTES RECEIVED PATIENT IN BED, AWAKE, A/O X4. PATIENT ON ROOM AIR; BREATHING EVEN AND UNLABORED; NO SOB NOTED. COMPLAINING OF MILD HEADACHE. R HAND IV ACCESS G #22 PRESENT AND INTACT. SAFETY PRECAUTIONS IN PLACE; BED IN LOW POSITION AND LOCKED, RAILS UP X2, CALL LIGHT WITHIN REACH, SEIZURE PRECAUTIONS IN PLACE. WILL CONTINUE TO MONITOR PATIENT.
[2021-10-03 08:00] VITALS: BP 136/74
[2021-10-03] MEDS: GABAPENTIN 100 MG CAPSULE PO SCH ×3 (08:10→17:20)
[2021-10-03] MEDS ORDERED: METO100T7 PO (10:13)
[2021-10-03 16:00] VITALS: BP 129/70
--- NOTE | 2021-10-03 16:55 | NUR ---
MS RN NOTES PATIENT WITH NO BM FOR 6 DAYS. ASKING FOR STOOL SOFTENER. PRN MOM GIVEN.
[2021-10-03 17:21] VITALS: BP 129/70
--- NOTE | 2021-10-03 18:33 | NUR ---
MS RN CLOSING NOTES PATIENT IN BED, NO CHANGE, AWAITING AMBULANCE FOR DC. ALL PAPERWORK READY AND SIGNED BY PATIENT.
--- NOTE | 2021-10-03 18:48 | NUR ---
MS RN NOTES PATIENT COMPLAINING OF HEADACHE 7 OUT OF 10. PRN NORCO ADMINISTERED.
--- NOTE | 2021-10-03 18:48 | NUR ---
MS RN NOTES AMBULANCE IS HERE. PICKING UP THE PATIENT. IV ACCESS REMOVED. PATIENT READY TO GO.
== END 2021-10-03 18:50 | DRG 55 ==
LOC: ER 11:50 → TRANSITION 18:03 → ICU 20:07 → TELE 09-30 16:15 → MED 10-01 12:53 → TELE 10-02 03:00 → MED 10-02 09:14
DX: S06.6X0A Traumatic subarachnoid hemorrhage without loss of consciousness, initial encounter (principal); I11.0 Hypertensive heart disease with heart failure; I50.9 Heart failure, unspecified; D72.829 Elevated white blood cell count, unspecified; E11.9 Type 2 diabetes mellitus without complications; E78.5 Hyperlipidemia, unspecified; E83.52 Hypercalcemia; S06.1X0A Traumatic cerebral edema without loss of consciousness, initial encounter; E86.0 Dehydration; E87.6 Hypokalemia; I25.10 Atherosclerotic heart disease of native coronary artery without angina pectoris; W19.XXXA Unspecified fall, initial encounter; Y93.9 Activity, unspecified; R40.2362 Coma scale, best motor response, obeys commands, at arrival to emergency department; R40.2142 Coma scale, eyes open, spontaneous, at arrival to emergency department; R40.2252 Coma scale, best verbal response, oriented, at arrival to emergency department; G62.9 Polyneuropathy, unspecified; S01.01XA Laceration without foreign body of scalp, initial encounter; Z79.4 Long term (current) use of insulin; Y92.000 Kitchen of unspecified non-institutional (private) residence as the place of occurrence of the external cause; M50.30 Other cervical disc degeneration, unspecified cervical region; Z79.84 Long term (current) use of oral hypoglycemic drugs; Z20.822 Contact with and (suspected) exposure to COVID-19
CPT/HCPCS: 36415; 70450-TC; 71045-TC; 72125-TC; 80048-TC; 80053-TC; 80061-TC; 80076-TC; 81001; 82962-TC; 83735-TC; 83880; 84100-TC; 84439-TC; 84443-TC; 84484-TC; 85025-TC; 87081-TC; 93307-TC; 97116-TC; 97530-TC; A6253; A6403; C9113; C9803; G0378; J1815; J2405; J7030; J7040; J8597